=== PATIENT | male | born 2000 | race American Indian/Alaskan Native ===

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

== ENCOUNTER 2020-05-06 12:21 | Emergency (ER) | payer SELFPAY ==
[2020-05-06 12:28] VITALS: BP 123/61
[2020-05-06 13:13] LABS: Basophils % (Auto) 0.3 % (0.0-1.8); Eosinophils % (Auto) 0.1 % (0.0-4.3); Hemoglobin 15.9 gm/dl (11.8-15.2); Lymphocytes # (Auto) 1.9 K/mm3 (1.2-5.4); Lymphocytes % (Auto) 32.4 % (13.4-35.0); Mean Corpuscular HGB Conc 33 % (32-34); Mean Corpuscular Volume 90 fl (84-94); Monocytes # (Auto) 0.7 K/mm3 (0.0-0.8); Monocytes % (Auto) 12.4 % (0.0-7.3); Platelet Count 280 K/mm3 (140-440); Red Blood Count 5.33 M/mm3 (3.65-5.03); Red Cell Distribution Width 14.2 % (13.2-15.2)
[2020-05-06 13:37] LABS: Alanine Aminotransferase 20 units/L (7-56); Albumin 5.4 g/dL (3.9-5); BUN/Creatinine Ratio 13; Blood Urea Nitrogen 16 mg/dL (9-20); Calcium 10.9 mg/dL (8.4-10.2); Hemolysis Index 16
[2020-05-06] MEDS ORDERED: FAMOTIDINE 20 MG/2 ML INJ IV ONE (14:27)
[2020-05-06] MEDS ORDERED: SODIUM CHLORIDE 0.9% 1000 ML 1,000 ML IV ONE (14:27)
[2020-05-06] MEDS ORDERED: HYOSCYAMINE SUBL 0.125 MG TAB SL ONE (14:27)
[2020-05-06] MEDS ORDERED: ONDANSETRON 4 MG/2 ML INJ IV ONE (14:27)
[2020-05-06] MEDS ORDERED: POTASSIUM CHLORIDE ER 20 MEQ TAB PO ONE (14:48)
--- NOTE | 2020-05-06 14:49 | Emergency Department Report ---
ED Abdominal Pain HPI - General Chief Complaint: Abdominal Pain Stated Complaint: V/ABD PAIN Time Seen by Provider: 05/06/20 14:07 Source: patient Mode of arrival: Ambulatory Limitations: No Limitations - History of Present Illness Initial Comments: Patient is a 20-year-old male presents emergency room with complaints of nausea and vomiting that began 2 days ago. He has associated mild upper abdominal discomfort. He denies any diarrhea, fever, urinary symptoms, dysuria. He states he had a normal bowel movement yesterday morning. Patient states that he last ate pizza before the symptoms began. He denies any sick contacts or recent travel. He denies any past medical history. No allergies to medications. - Related Data Previous Rx's Medication Instructions Recorded Last Taken Type Sulfamethoxazole/Trimethoprim 1 each PO Q12H #20 tablet 03/01/19 Unknown Rx [Bactrim DS TAB] Doxycycline Monohydrate 150 mg PO BID #20 capsule 09/12/19 Unknown Rx [Doxycycline Monohydrate CAP] Ondansetron [Zofran Odt] 4 mg PO Q8HR PRN #7 tab.rapdis 05/06/20 Unknown Rx Allergies Allergy/AdvReac Type Severity Reaction Status Date / Time No Known Allergies Allergy Unverified 03/01/19 03:32 ED Review of Systems ROS: Stated complaint: V/ABD PAIN Other details as noted in HPI Comment: All other systems reviewed and negative ED Past Medical Hx - Past Medical History Previous Medical History?: No Additional medical history: std - Surgical History Past Surgical History?: No - Social History Smoking Status: Never Smoker Substance Use Type: None - Medications Home Medications: Home Medications Medication Instructions Recorded Confirmed Last Taken Type Sulfamethoxazole/Trimethoprim 1 each PO Q12H #20 tablet 03/01/19 Unknown Rx [Bactrim DS TAB] Doxycycline Monohydrate 150 mg PO BID #20 capsule 09/12/19 Unknown Rx [Doxycycline Monohydrate CAP] Ondansetron [Zofran Odt] 4 mg PO Q8HR PRN #7 tab.rapdis 05/06/20 Unknown Rx ED Physical Exam - General Limitations: No Limitations General appearance: alert, in no apparent distress - Head Head exam: Present: atraumatic, normocephalic - Eye Eye exam: Present: normal appearance - ENT ENT exam: Present: mucous membranes moist - Respiratory Respiratory exam: Present: normal lung sounds bilaterally. Absent: respiratory distress, wheezes, rales, rhonchi, stridor, chest wall tenderness, accessory muscle use, decreased breath sounds, prolonged expiratory - Cardiovascular Cardiovascular Exam: Present: regular rate, normal rhythm, normal heart sounds. Absent: systolic murmur, diastolic murmur, rubs, gallop - GI/Abdominal GI/Abdominal exam: Present: soft, tenderness (mild LUQ ttp), normal bowel sounds, other (negative murphys sign, no [place] ttp, negative [place] sign). Absent: distended, guarding, rebound, rigid - Neurological Exam Neurological exam: Present: alert, oriented X3 - Psychiatric Psychiatric exam: Present: normal affect, normal mood - Skin Skin exam: Present: warm, dry, intact ED Course Vital Signs 05/06/20 12:27 Temperature 98.6 F Pulse Rate 98 H Respiratory 18 Rate Blood Pressure 123/61 [Right] O2 Sat by Pulse 100 Oximetry ED Medical Decision Making - Lab Data Result diagrams: 05/06/20 12:53 05/06/20 12:53 Labs 05/06/20 05/06/20 05/06/20 12:53 12:53 12:53 WBC 5.8 RBC 5.33 H Hgb 15.9 H Hct 48.0 H MCV 90 MCH 30 MCHC 33 RDW 14.2 Plt Count 280 Lymph % (Auto) 32.4 [place] % (Auto) 12.4 H Eos % (Auto) 0.1 Baso % (Auto) 0.3 Lymph # 1.9 [place] # 0.7 Eos # 0.0 Baso # 0.0 Seg Neutrophils % 54.8 Seg Neutrophils # 3.2 Sodium 135 L Potassium 3.4 L Chloride 93.0 L Carbon Dioxide 21 L Anion Gap 24 BUN 16 Creatinine 1.2 Estimated GFR > 60 BUN/Creatinine Ratio 13 Glucose 108 H Calcium 10.9 H Total Bilirubin 2.20 H AST 27 ALT 20 Alkaline Phosphatase 102 Total Protein 8.9 H Albumin 5.4 H Albumin/Globulin Ratio 1.5 Lipase 23 - Medical Decision Making Patient is a 20-year-old male presents emergency room with complaints of nausea and vomiting that began 2 days ago. He has associated mild upper abdominal discomfort. He denies any diarrhea, fever, urinary symptoms, dysuria. He states he had a normal bowel movement yesterday morning. Patient states that he last ate pizza before the symptoms began. He denies any sick contacts or recent travel. He denies any past medical history. No allergies to medications. Vitals are normal. No abdominal tenderness on exam, no guarding, no rebound, no rigidity. No leukocytosis. Labs show signs of dehydration, mild hypokalemia, there is a mild non specific elevation in patient's bilirubin but otherwise his LFTs are normal. Patient given 1 L IV fluids, Zofran, Levsin, K- Dur, pepcid. Patient was feeling better and ready to go home. He had no e pisodes of vomiting while in the exam room. He was able to tolerate p.o. intake without difficulty. Advised patient that he need to be reexamined within the next 2 days. Discussed strict return precautions with patient. Patient given prescription for Zofran. Advised patient Please take medication as prescribed as needed. Increase your water intake over the next several days. Eat a bland liquid diet and slowly advance your diet as tolerated. Avoid anything sugary or greasy. Follow-up with a primary care doctor in the next 2 to 3 days and be reexamined. Return to emergency room immediately for any new or worsening symptoms including but not limited to worsening abdominal pain, fever, continued vomiting, unable to tolerate by mouth intake, etc. - Differential Diagnosis gastroenteritis, gastritis, viral syndrome, colitis, pancreatitis, cholecys Critical care attestation.: If time is entered above; I have spent that time in minutes in the direct care of this critically ill patient, excluding procedure time. ED Disposition Clinical Impression: Dehydration, Hypokalemia Nausea & vomiting Qualifiers: Vomiting type: unspecified Vomiting Intractability: non-intractable Qualified Code(s): R11.2 - Nausea with vomiting, unspecified Abdominal pain Qualifiers: Abdominal location: left upper quadrant Qualified Code(s): R10.12 - Left upper quadrant pain Disposition: DC-01 TO HOME OR SELFCARE Is pt being admited?: No Does the pt Need Aspirin: No Condition: Stable Instructions: Gastritis (ED) Additional Instructions: Please take medication as prescribed as needed. Increase your water intake over the next several days. Eat a bland liquid diet and slowly advance your diet as tolerated. Avoid anything sugary or greasy. Follow-up with a primary care doc tor in the next 2 to 3 days and be reexamined. Return to emergency room immediately for any new or worsening symptoms including but not limited to worsening abdominal pain, fever, continued vomiting, unable to tolerate by mouth intake, etc. Prescriptions: Ondansetron [Zofran Odt] 4 mg PO Q8HR PRN #7 tab.rapdis PRN Reason: Nausea And Vomiting Referrals: [facility] [Provider Group] - 2-3 Days JUAN C ROLAND MD [Staff Physician] - 2-3 Days [facility], [LAB/CONTRACT] - 2-3 Days Time of Disposition: 15:20 Print Language: ARMENIAN
== END 2020-05-06 15:42 | disposition home or self-care (01) ==
LOC: ED 12:21
DX: E87.6 Hypokalemia (principal); E86.0 Dehydration; R11.2 Nausea with vomiting, unspecified; Z79.899 Other long term (current) drug therapy
CPT/HCPCS: 36415; 80053; 83690; 85025; 96361; 96374; 96375; 99283; J2405; J7030

== ENCOUNTER 2021-04-09 22:10 | Emergency (ER) | payer OTHER ==
[2021-04-10 03:46] VITALS: BP 142/98
[2021-04-10 05:22] LABS: Hematocrit 45.8 % (35.5-45.6); Hemoglobin 15.6 gm/dl (11.8-15.2); Mean Corpuscular HGB Conc 34 % (32-34); Mean Corpuscular Volume 92 fl (84-94); Platelet Count 216 K/mm3 (140-440); Red Blood Count 4.99 M/mm3 (3.65-5.03); Red Cell Distribution Width 13.6 % (13.2-15.2)
[2021-04-10 05:38] LABS: Alanine Aminotransferase 15 units/L (7-56); Albumin 5.4 g/dL (3.9-5); BUN/Creatinine Ratio 18; Blood Urea Nitrogen 20 mg/dL (9-20); Calcium 10.3 mg/dL (8.4-10.2); Hemolysis Index 8
[2021-04-10 08:00] LABS: Bacteria,Urine 1+ /HPF (Negative); Bilirubin,Urine NEG (Negative); Blood,Urine NEG (Negative); Color,Urine Yellow (Yellow); Mucus,Urine 1+ /HPF; Urobilinogen,Urine < 2.0 mg/dL (<2.0)
[2021-04-10 08:45] LABS: Band Neutrophils # (Manual) 0.1 K/mm3; Platelet Estimate Consistent w Auto; RBC Morphology Normal; Total Cells Counted 100
== END 2021-04-10 15:07 | disposition home or self-care (01) ==
LOC: ED 22:10
DX: R19.7 Diarrhea, unspecified (principal); Z53.21 Procedure and treatment not carried out due to patient leaving prior to being seen by health care provider
CPT/HCPCS: 36415; 80053; 81001; 83690; 85007; 85025